=== PATIENT | female | born 1945 | race Caucasian/White ===

== ENCOUNTER 2016-08-29 20:48 | Emergency (ER) | payer OTHER ==
[~2016-08-29] VITALS: Ht 152.4 cm; Wt 50.0 kg
[~2016-08-29 20:48] MED LIST: AMLO-218 PO; ATOR20TA38 PO; ISOS30TA5 PO; PANT40TA4 PO
[2016-08-29 20:50] VITALS: Ht 152.4 cm; Wt 50.0 kg
--- NOTE | 2016-08-29 21:09 | ERA ---
ER Documentation Chief Complaint Date/Time DATE: 08/29/16 TIME: 21:08 Chief Complaint chest pain on and off x 4 days, headache x 4 days HPI The patient is a 71-year-old female, presenting to the ER because of chronic intermittent left-sided chest pain for years. It has happened more frequently for the last 4 days, worse with movement. The chest pain is localized to substernal area, minimal, not associated with vomiting or diaphoresis on exertion. She had a cardiac cath about 2 years ago which was unremarkable according to her physician Dr. Dobson. She has been noncompliant with her medication. She does not smoke or drink Past medical history: Asthma, hypertension, anxiety, dyslipidemia Past medical history: None ROS All systems reviewed and are negative except as per history of present illness. Medications Home Meds Discontinued Scripts Amlodipine Besylate* (Norvasc*) 10 Mg Tablet, 10 MG PO DAILY for 30 Days, TAB Prov:YOSHI BRAVO MD 12/29/15 Isosorbide Mononitrate* (Isosorbide Mononitrate*) 30 Mg Tab.er.24h, 30 MG PO QHS for 30 Days, TAB 3 Refills Prov:JAM DOBSON 03/16/15 Pantoprazole* (Pantoprazole*) 40 Mg Tabec, 40 MG PO DAILY@06 for 30 Days, 3 Refills Prov:JAM DOBSON 03/16/15 Atorvastatin Calcium* (Atorvastatin Calcium*) 20 Mg Tab, 20 MG PO HS for 30 Days , TAB 3 Refills Prov:JAM DOBSON 03/16/15 Allergies Allergies: Coded Allergies: Penicillins (Verified Allergy, Unknown, 08/29/16) PMhx/Soc History of Surgery: No Anesthesia Reaction: No Hx Neurological Disorder: No Hx Respiratory Disorders: Yes (Asthma) Hx Cardiac Disorders: Yes (HTN) Hx Psychiatric Problems: No Hx Miscellaneous Medical Probl: Yes (Anxiety) Hx Alcohol Use: No Hx Substance Use: No Hx Tobacco Use: No Physical Exam Vitals Vital Signs Date Time Temp Pulse Resp B/P Pulse Ox O2 Delivery O2 Flow Rate FiO2 08/29/16 20:50 98.1 73 20 144/80 99 Physical Exam Const: No acute distress. Head: Atraumatic. Eyes: Normal Conjunctiva. ENT: Normal External Ears, Nose and Mouth. Neck: Full range of motion. No meningismus. Resp: Clear to auscultation bilaterally. Cardio: Regular rate and rhythm, no murmurs. Abd: Soft, non distended, normal bowel sounds, non tender. Skin: No petechiae or rashes. Back: No midline or flank tenderness. Ext: No cyanosis, or edema. Neur: Awake and alert. No focal deficit Psych: Normal Mood and Affect. Result Diagram: 08/29/16212408/29/162124 Results 24 hrs Laboratory Tests Test 08/29/16 21:25 White Blood Count 4.310^3/ul Red Blood Count 4.0410^6/ul Hemoglobin 11.9g/dl Hematocrit 35.1% Mean Corpuscular Volume 86.9fl Mean Corpuscular Hemoglobin 29.5pg Mean Corpuscular Hemoglobin Concent 33.9g/dl Red Cell Distribution Width 13.2% Platelet Count 83579^3/UL Mean Platelet Volume 11.0fl Neutrophils % 41.8% Lymphocytes % 41.9% Monocytes % 9.2% Eosinophils % 6.2% Basophils % 0.7% Nucleated Red Blood Cells % 0.0/100WBC Neutrophils # 1.810^3/ul Lymphocytes # 1.810^3/ul Monocytes # 0.410^3/ul Eosinophils # 0.310^3/ul Basophils # 0.010^3/ul Nucleated Red Blood Cells # 0.010^3/ul Prothrombin Time 12.9Sec Prothrombin Time Ratio 1.0 INR International Normalized Ratio 0.97 Activated Partial Thromboplast Time 29.4Sec Sodium Level 143mmol/L Potassium Level 3.8mmol/L Chloride Level 105mmol/L Carbon Dioxide Level 25mmol/L Anion Gap 17 Blood Urea Nitrogen 17mg/dl Creatinine 0.61mg/dl Glucose Level 125mg/dl Calcium Level 9.2mg/dl Troponin I < 0.012ng/ml Current Medications Medications (Trade) Dose Ordered Sig/Jd Route PRN Reason Start Time Stop Time Status Last Admin Dose Admin Aspirin (Aspirin) 325 mg ONCE STAT PO 08/29/16 21:21 08/29/16 21:39 DC 08/29/16 21:43 Nitroglycerin (Nitroglycerin 2% Oint) 1 inch ONCE STAT TD 08/29/16 21:21 08/29/16 21:39 DC 08/29/16 21:44 Procedures/MDM [place] [id number] Radiology Main Line: [phone] DIAGNOSTIC IMAGING REPORT Patient: SUZY DE LA GARZA : 1945 Age: 71 Sex: F MR #: [id number] DOS: 08/29/162120 Ordering MD: YOSHI BRAVO MD Location: E/R Room/Bed: PROCEDURE: XR Chest. CLINICAL INDICATION: Chest pain. TECHNIQUE: Single frontal view of the chest was obtained. COMPARISON: None FINDINGS: The soft tissues are normal. Bony elements are poorly visualized due to underpenetration of the radiograph. The heart, cardiomediastinal silhouette and hilar structures are normal. The pulmonary vasculature is normal.. There are vascular calcifications in the aortic arch. There is a plate-like density adjacent to the left heart border. The remaining lung lino are clear. The costophrenic angles are normal. IMPRESSION: 1. Atherosclerosis of the aortic arch. 2. No evidence of active cardiopulmonary disease. 3. Plate-like atelectasis lateral to the left heart border. RPTAT:AAJJ Physician Kell Date Time Electronically viewed and signed by Physician Kell on 08/29/2016 22:10 JM/ CC: YOSHI BRAVO MD EK:51 PM read by emergency physician Rate/Rhythm: Normal Sinus Rhythm 64 beats/min QRS, ST, T-waves: No ST elevation, inferior T abnormality Impression: Abnormal EKG EK:05 PM read by emergency physician Rate/Rhythm: Normal Sinus Rhythm 57 beats/min QRS, ST, T-waves: No ST elevation, inferior T abnormality, PAC Impression: Abnormal EKG MEDICAL MAKING DECISION: The patient is a 71-year-old female, presenting to the ER because of acute on chronic left-sided chest pain. She was treated with aspirin 325 mg p.o. and 1 inch of nitroglycerin ointment with good response. The differential diagnoses considered include but are not limited to acute coronary syndrome, acute myocardial infarction, pericarditis, pulmonary embolism , aortic dissection, pneumonia, pleural effusion, pneumothorax, GERD, chest wall pain. Consultation: I discussed the patient with her physician Dr. Dobson who knows her very well, recommended discharging the patient Departure Diagnosis: Primary Impression: Chest pain Additional Impression: Anemia Condition: Good Comments I am waiting for the second troponin AT 12:30 AM, if it is negative, she will be discharged The patient presents with chest pain and I considered pulmonary embolism, aortic dissection, pneumothorax among other diagnoses. Evaluation for acute coronary syndrome was performed. The HEART score (www.mdcalc.com) was utilized for risk stratification and found to be < = 3. Repeat EKG and troponin @ 3 hours were unchanged. Based on this evaluation the patients risk of major adverse cardiac events is <1%. Shared decision making occurred with patient and the decision has been made to discharge the patient for outpatient evaluation and functional study within 72 hours. YOSHI BRAVO MD August 29, 2016 21:09
[2016-08-29] MEDS ORDERED: NITROGLYCERIN 2% 1 GM OINT PKT TD STA (21:21)
[2016-08-29] MEDS ORDERED: ASPIRIN 325 MG TAB PO STA (21:21)
[2016-08-29 21:47] LABS: ADD SCAN DIFF NO
[2016-08-29 21:49] LABS: BASOPHILS % 0.7 % (0.0-2.0); EOSINOPHILS # 0.3 10^3/ul (0.0-0.5); EOSINOPHILS % 6.2 % (0.0-7.0); HEMATOCRIT 35.1 % (37.0-47.0); HEMOGLOBIN 11.9 g/dl (12.0-16.0); LYMPHOCYTES # 1.8 10^3/ul (0.8-2.9); LYMPHOCYTES % 41.9 % (15.0-51.0); MEAN CORPUSCULAR HEMOGLOBIN 29.5 pg (29.0-33.0); MEAN CORPUSCULAR HGB CONC 33.9 g/dl (32.0-37.0); MEAN CORPUSCULAR VOLUME 86.9 fl (82.0-101.0); MONOCYTE # 0.4 10^3/ul (0.3-0.9); MONOCYTES % 9.2 % (0.0-11.0); NEUTROPHIL # 1.8 10^3/ul (1.6-7.5); NEUTROPHILS % 41.8 % (39.0-77.0); PLATELET COUNT 221 10^3/UL (140-415); RED BLOOD COUNT 4.04 10^6/ul (4.20-5.40); RED CELL DISTRIBUTION WIDTH 13.2 % (11.5-14.5); WHITE BLOOD COUNT 4.3 10^3/ul (4.8-10.8)
[2016-08-29 22:03] LABS: CHLORIDE 105 mmol/L (97-110); POTASSIUM 3.8 mmol/L (3.5-5.1); SODIUM 143 mmol/L (135-144)
[2016-08-29 22:04] LABS: INR 0.97; PROTIME 12.9 Sec (12.2-14.2)
[2016-08-29 22:05] LABS: PARTIAL THROMBOPLASTIN TIME 29.4 Sec (25.0-35.0)
[2016-08-29 22:06] LABS: ANION GAP 17 (8-16); BLOOD UREA NITROGEN 17 mg/dl (7-20); CARBON DIOXIDE 25 mmol/L (21-31); CREATININE 0.61 mg/dl (0.44-1.00); GLUCOSE 125 mg/dl (70-220)
[2016-08-29 22:07] LABS: CALCIUM 9.2 mg/dl (8.4-10.2)
--- NOTE | 2016-08-29 22:11 | RADRPT ---
PROCEDURE: XR Chest. CLINICAL INDICATION: Chest pain. TECHNIQUE: Single frontal view of the chest was obtained. COMPARISON: None FINDINGS: The soft tissues are normal. Bony elements are poorly visualized due to underpenetration of the rad iograph. The heart, cardiomediastinal silhouette and hilar structures are normal. The pulmonary vas culature is normal.. There are vascular calcifications in the aortic arch. There is a plate-like de nsity adjacent to the left heart border. The remaining lung lino are clear. The costophrenic ang les are normal. IMPRESSION: 1. Atherosclerosis of the aortic arch. 2. No evidence of active cardiopulmonary disease. 3. Plate-like atelectasis lateral to the left heart border. RPTAT:AAJJ Physician Kell Date Time Electronically viewed and signed by Tad Mahoney Physician on 08/29/2016 22:10 EDUARDO/
[2016-08-29 22:19] LABS: TROPONIN-I < 0.012 ng/ml (0.00-0.12)
[2016-08-29] MEDS ORDERED: PANT40TA3 PO (23:03)
[2016-08-30 02:43] VITALS: BP 131/51; PULSE 64; RESP 17
== END 2016-08-30 02:47 | disposition home or self-care (01) ==
LOC: E/R 20:48
DX: R07.9 Chest pain, unspecified (principal); D64.9 Anemia, unspecified; I10 Essential (primary) hypertension; J45.909 Unspecified asthma, uncomplicated
CPT/HCPCS: 36415; 71010; 80048; 84484; 85025; 85610; 85730

== ENCOUNTER 2017-06-05 05:21 | Inpatient (IN) | END 2017-06-06 15:52 | disposition home or self-care (01) | DRG 149 ==